=== PATIENT | female | born 1945 | race Caucasian/White ===

== ENCOUNTER 2016-10-30 11:00 | Observation (INO) | payer MEDICARE, OTHER ==
--- NOTE | ~2016-10-30 | HP ---
History And Physical [facility] [address] [facility] [place]. [address] NAME: ARIANA TUCKER : 47 STATUS : ADM IN [facility]#: [id number] AGE: 71 ADM/REG DATE : 10/30/16 MR#: [id number] REPORT SERV DATE: 10/30/16 DICTATED BY: JR. MITCHELL WILLIAM JOHN DATE: 10/30/16 REPORT STATUS : Draft TRANSCRIBED BY: CONSUELO DATE: 10/30/16 DATE OF ADMISSION: 10/30/2016 HISTORY OF PRESENT ILLNESS: A 71-year-old white female, sent for direct admission from Dr. Ware's office. The patient has a long history of gastroesophageal reflux disease which has been symptomatic. She had a Keyla fundoplication in the past, but continues to have reflux symptoms. The patient says she developed chest tightness without radiation when walking on an incline. It is better with rest or better with walking, not at an incline. There was no accompanying nausea, vomiting, diaphoresis, radiation, or dizziness. It is better with rest. There is no association with meals or position. Cardiac risk factors include negative for history of hypertension, although she does have an elevated blood pressure currently. Negative for history of diabetes, negative for family history of early coronary artery disease. She does have tobacco use, but quit greater than 10 years ago. She also has [id number] elevated cholesterol. She went to Dr. Ware's office. An EKG showed nonspecific T-wave inversion in the inferior and lateral leads which is new. She was therefore directed to [facility] for admission. She is chest pain-free currently. PAST MEDICAL HISTORY: Includes: 1. History of breast cancer, status post radiation therapy and left-sided lumpectomy followed outpatient by Dr. Rayo. 2. Anxiety and depression. 3. Gastroesophageal reflux disease. 4. Obstructive sleep apnea. 5. Right rotator cuff repair. 6. History of kidney stones. 7. Status post Keyla fundoplication. 8. History of palatouvulectomy. MEDICATIONS: Include only Nexium 40 daily. ALLERGIES: TAMOXIFEN. FAMILY HISTORY: Mother at age 85 of a stroke. Also had Parkinson disease. Father at age 61 of lung cancer. Has one brother, who of cirrhosis. SOCIAL HISTORY: Lives in [place] with her . 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 She occasionally drinks alcohol. Has smoking 25-pack year smoking history, quitting greater than 10 years ago. Denies illicit drugs. REVIEW OF SYSTEMS: All systems were reviewed and are negative except as in history of present illness and also admits to headache, decreased visual acuity, chest pain, cough, reflux disease, and symptoms of depression without suicidal or homicidal ideation. History And Physical [address] [address] NAME: ARIANA TUCKER : [birth year] STATUS : ADM IN PAT#: [id number] AGE: 71 ADM/REG DATE : 10/30/16 MR#: [id number] REPORT SERV DATE: 10/30/16 DICTATED BY: JR. MITCHELL WILLIAM JOHN DATE: 10/30/16 REPORT STATUS : Draft TRANSCRIBED BY: CONSUELO DATE: 10/30/16 PHYSICAL EXAMINATION: VITAL SIGNS: Temperature 98, blood pressure 203/93, heart rate 61, respiratory rate of 18. GENERAL: The patient is alert, oriented, appeared anxious. HEENT: Pupils are equal, round, react to light. Extraocular motions are intact. Sclerae anicteric. Oropharynx clear. NECK: Supple without jugular venous distention, thyromegaly, or bruits. LUNGS: Clear to auscultation bilaterally with symmetrical chest rise. CARDIOVASCULAR: S1, S2 without gallop, murmur, or rub. There is no pain to parasternal palpation. ABDOMEN: Soft, nontender. Bowel sounds present. EXTREMITIES: Show no clubbing, cyanosis, or edema. NEUROLOGIC: Cranial nerves II through XII are intact. Strength and sensation were full and equal throughout. Lymph node survey is negative in cervical and supraclavicular region. Mood and affect were appropriate. Chest x-ray showed no infiltrate with normal heart size. LABORATORY DATA: White count of 5.6, hemoglobin 14.2, platelets 261. PT of 13 with an INR of 1.1. Sodium 146, potassium 3.8, chloride 111, bicarb 29, BUN 14, creatinine 0.9, glucose 93, magnesium 2.3, calcium 9. Troponin I of less than 0.02. Total protein 7.5, albumin 3.5, total bilirubin 0.3, alkaline phosphatase 68, AST 23, ALT of 23. EKG at Dr. Ware's office showed sinus rhythm at rate of 62 with inferolateral T inversion. EKG at [facility] showed sinus rhythm at rate of 65, with T-wave flattening diffusely. ASSESSMENT AND PLAN: A 71-year-old white female with, 1. Chest pressure with a history of reflux disease when walking on an incline with nonspecific EKG changes in the inferolateral leads. We will monitor the patient on telemetry. Rule out myocardial infarction with serial cardiac enzymes. Get a treadmill nuclear stress test in the morning. 2. Elevated blood pressure. No history of hypertension. The patient has significant anxiety. We will therefore manage with p.r.n. medications until the patient consistently demonstrates hypertension. 3. History of breast cancer, status post radiation therapy and lumpectomy. She had some sort of an adverse reaction to tamoxifen. 4. Anxiety and depression. 5. Obstructive sleep apnea. 6. History of reflux disease despite Keyla. Use famotidine. 7. The patient is observation status. 8. Full code. 9. I will follow this patient. WJF/CONSUELO Alexys Mitchell Jr, MD History And Physical [address] [address] NAME: ARIANA TUCKER : 47 STATUS : ADM IN [facility]#: [id number] AGE: 71 ADM/REG DATE : 10/30/16 MR#: [id number] REPORT SERV DATE: 10/30/16 DICTATED BY: JR. MITCHELL WILLIAM JOHN DATE: 10/30/16 REPORT STATUS : Draft TRANSCRIBED BY: MODL DATE: 10/30/16 / [id number] CC: Alexys Mitchell Jr, MD Mark Heinsohn, M.D.
--- NOTE | ~2016-10-30 | DS ---
Discharge Summary [facility] [address] [place]. [address] NAME: ARIANA TUCKER : 47 STATUS : DIS IN PAT#: [id number] AGE: 71 ADM/REG DATE : 10/30/16 MR#: [id number] REPORT SERV DATE: 10/31/16 DICTATED BY: JR. MITCHELL WILLIAM JOHN DATE: 10/31/16 REPORT STATUS : Draft TRANSCRIBED BY: CONSUELO DATE: 10/31/16 ADMISSION DATE: 10/30/2016 DISCHARGE DATE: 10/31/2016 DISCHARGE DIAGNOSES: 1. Noncardiac chest pain. 2. Essential hypertension. 3. History of breast cancer, status post lumpectomy and radiation therapy. 4. Anxiety and depression. 5. Obstructive sleep apnea. 6. Gastroesophageal reflux disease with a history of prior Keyla fundoplication. OPERATIONS, PROCEDURES, AND TREATMENTS: Include: 1. Transthoracic echocardiogram done 10/31/2016, which showed normal left ventricular systolic function. Ejection fraction 55% with mild diastolic dysfunction. There was normal right ventricular chamber size and systolic function. Mild aortic valvular regurgitation. 2. Treadmill nuclear stress test, done 10/31/2016, which showed Griffin stage III with 92% predicted maximal heart rate achieved at 10 METS. There is 1/10 chest pressure noted. There were no EKG changes of ischemia. Imaging demonstrated no ischemia with ejection fraction estimated at 58% with an overall low risk stress test. 3. Chest x-ray which showed no infiltrate, normal heart size. Serial troponins, which were less than 0.02. DISCHARGE MEDICATIONS: Include: 1. Lisinopril 10 mg orally daily. 2. Nexium 40 mg orally daily. HOSPITAL COURSE: The patient is a 71-year-old white female, sent for direct admission from Dr. Ware's office. The patient has a history of gastroesophageal reflux disease with a prior Keyla fundoplication who presented to Dr. Ware's office with chest pain while walking at an incline. There were no associated symptoms of nausea, vomiting, diaphoresis, radiation, or dizziness. The pain was better with rest, walking, not at an incline. It was not affected by meals or position. The patient did have risk factor including mildly elevated cholesterol and tobacco abuse, greater than 10 years abstinent. Exam was benign, except did have a blood pressure of 203/93 at the time of significant anxiety. Laboratory was unremarkable. Troponin was less than 0.02. EKG done at Dr. Ware's office showed inferolateral T inversion. A repeat EKG at [facility] showed flattened T-waves, however, no T inversion. The patient was admitted to the Clinical Decision Unit for observation. She was placed on telemetry. No significant arrhythmias were noted. She had serial cardiac enzymes, which were all less than detectable, then underwent an echocardiogram, which is detailed above, and a stress test which was low risk. The patient is felt to be stable for discharge home. She was found to have moderate hypertension with systolic pressures in the 145-155 range and will be started on lisinopril 10 mg orally daily. Discharge Summary [address] [address] NAME: ARIANA TUCKER : 47 STATUS : DIS IN PAT#: [id number] AGE: 71 ADM/REG DATE : 10/30/16 MR#: [id number] REPORT SERV DATE: 10/31/16 DICTATED BY: JR. MITCHELL WILLIAM JOHN DATE: 10/31/16 REPORT STATUS : Draft TRANSCRIBED BY: CONSUELO DATE: 10/31/16 DISCHARGE DIET: Will be regular. ACTIVITY: As tolerated. For discharge exam and laboratory, please see daily progress note. FOLLOWUP: With Dr. Ware in one to two weeks. I discussed this with Dr. Ware prior to the patient's discharge. WJF/CONSUELO Alexys Mitchell Jr, MD / [id number] CC: Alexys Mitchell Jr, MD Mark Heinsohn, M.D.
[~2016-10-30 11:00] MED LIST: NEXIUM20 M1 PO; NORCO1 TA2 PO; [UNRECOGNIZED DRUG - REMARK]
[2016-10-30 12:36] LABS: BASOPHILS 0.9 %; BASOPHILS ABSOLUTE 0.05 10/3/uL (0.0-0.16); EOSINOPHILS 6.6 %; EOSINOPHILS ABSOLUTE 0.37 10/3/uL (0.0-0.53); HEMATOCRIT 43.5 % (36.0-48.0); HEMOGLOBIN 14.2 g/dL (12.0-16.0); LYMPHOCYTES ABSOLUTE 2.06 10/3/uL (0.67-4.30); MEAN CORPUS HGB CONC 32.6 g/dL (32.0-36.0); MEAN CORPUSCULAR HEMOGLOB 28.5 pg (26.0-34.0); MEAN PLATELET VOLUME 11.1 fL (9.2-13.0); MONOCYTES 10.1 %; MONOCYTES ABSOLUTE 0.56 10/3/uL (0.21-1.20); NEUTROPHILS 45.4 %; NEUTROPHILS ABSOLUTE 2.53 10/3/uL (2.02-8.40); PLATELET COUNT 261 10/3/uL (150-400); RBC DISTRIBUTION WIDTH 14.6 % (12.0-16.0); RED CELL COUNT 4.99 10/6/uL (4.0-5.6); WHITE BLOOD CELLS 5.6 10/3/uL (4.5-10.5)
[2016-10-30 12:38] LABS: MANUAL DIFF NO %; MEAN CORPUSCULAR VOLUME 87.2 fL (80-100)
[2016-10-30 13:01] LABS: A/G RATIO 0.9 (0.7-1.9); ALBUMIN 3.5 G/DL (3.5-5.0); ALKALINE PHOSPHATASE 68 U/L (45-117); BUN (BLOOD UREA NITROGEN) 14 MG/DL (6-23); CHLORIDE, SERUM 111 MMOL/L (96-112); CO2 (CARBON DIOXIDE) 29 MMOL/L (24-34); CREATININE 0.92 MG/DL (0.55-1.02); GFR AFRICAN AMERICAN 73 ML/MIN (>=60); GFR NON AFRICAN AMERICAN 63 ML/MIN (>=60); GLUCOSE, SERUM 93 MG/DL (60-99); POTASSIUM, SERUM 3.8 MMOL/L (3.5-5.3); SGOT(AST) 23 U/L (5-40); SGPT(ALT) 25 U/L (5-65); SODIUM, SERUM 146 MMOL/L (135-148); TOTAL BILIRUBIN 0.3 MG/DL (0-1.2); TOTAL PROTEIN 7.5 G/DL (6.0-8.5); TROPONIN I <0.02 NG/ML (<0.05)
[2016-10-30] MEDS ORDERED: NEXIUM40 PO (15:05)
[2016-10-31 05:02] LABS: CHOL/HDL RATIO(NOT ORDER) 3.4 (0-5); ULTRASENSITIVE TSH 1.28 MCIU/ML (0.358-3.740)
[2016-10-31] MEDS ORDERED: PRIN10 PO (13:43)
[2016-12-12] MEDS ORDERED: NORV25 PO (09:18)
[2016-12-12] MEDS ORDERED: PRIN5 PO ×2 (09:18→09:19)
[2016-12-12] MEDS ORDERED: LIPITOR10 PO (09:19)
[2016-12-12] MEDS ORDERED: IMDUR30 PO (09:19)
[2016-12-12] MEDS ORDERED: RANITIDINE300 MG PO (09:20)
== END 2016-10-31 14:14 | disposition home or self-care (01) ==
LOC: CDU2 11:00
PROVIDERS: Internal Medicine
DX: R07.89 Other chest pain (principal); K21.9 Gastro-esophageal reflux disease without esophagitis; F41.9 Anxiety disorder, unspecified; F32.9 Major depressive disorder, single episode, unspecified; G47.33 Obstructive sleep apnea (adult) (pediatric); I10 Essential (primary) hypertension; Z87.442 Personal history of urinary calculi; Z98.890 Other specified postprocedural states; Z79.899 Other long term (current) drug therapy; Z88.8 Allergy status to other drugs, medicaments and biological substances; Z87.891 Personal history of nicotine dependence; Z85.3 Personal history of malignant neoplasm of breast
CPT/HCPCS: 71010; 78452; 80053; 80061; 83735; 84443; 84484; 85025; 85610; 93005; 93017; 93306; 96372; 96374; A9270-GY; A9502; G0378; J0360